=== PATIENT | female | born 1990 | race Two or more races ===

== ENCOUNTER 2016-07-16 13:59 | Emergency (ER) | payer MEDICAID ==
[~2016-07-16] VITALS: Ht 154.9 cm; Wt 88.5 kg
[~2016-07-16 13:59] MED LIST: PREN-153 OR
[2016-07-16 14:12] VITALS: BP 129/78
== END 2016-07-16 16:35 | disposition left against medical advice (07) ==
LOC: ER 13:59
DX: R10.31 Right lower quadrant pain (principal); R11.2 Nausea with vomiting, unspecified; Z53.21 Procedure and treatment not carried out due to patient leaving prior to being seen by health care provider

== ENCOUNTER 2022-06-16 20:07 | Emergency (ER) | payer MEDICAID ==
[~2022-06-16] VITALS: Ht 154.9 cm; Wt 83.8 kg
[~2022-06-16 20:07] MED LIST changes: -PREN-153 OR; +PREN1TAB71 OR
[2022-06-16 20:22] VITALS: BP 125/83
[2022-06-16] MEDS ORDERED: ACETAMINOPHEN 500 MG TAB PO ONE (21:30)
== END 2022-06-16 22:26 | disposition left against medical advice (07) ==
LOC: ER 20:07
DX: S09.8XXA Other specified injuries of head, initial encounter (principal); M25.562 Pain in left knee; F17.210 Nicotine dependence, cigarettes, uncomplicated; F12.10 Cannabis abuse, uncomplicated; V43.52XA Car driver injured in collision with other type car in traffic accident, initial encounter; Y93.89 Activity, other specified; Y92.89 Other specified places as the place of occurrence of the external cause; Y99.8 Other external cause status